=== PATIENT | female | born 1965 | race Caucasian/White ===

== ENCOUNTER → 2016-08-25 | Outpatient (CLI) | payer OTHER ==
[~2016-08-25] VITALS: Ht 154.9 cm; Wt 111.1 kg
[~2016-08-25] MED LIST: ASPI325T PO; CYCL10TA PO; DULO1CAP3 PO; FISH1000 PO; GABA-282 PO; LIDOCAINE 2% INJ 100 MG/5 ML SDV (FOR ANES.) As Ordered ONE; MELO15TA4 PO; PERC5TAB6 PO; PHEN-223 PO; PROPOFOL 200 MG/20 ML VIAL As Ordered ONE; VITA10002 PO; VITA500046 PO; VITMTA PO
[2016-08-25 15:40] VITALS: BP 105/58
== END | disposition home or self-care (01) ==
LOC: M OPP 13:53
PROVIDERS: ATTEND Internal Medicine Gastroenterology
DX: Z12.11 Encounter for screening for malignant neoplasm of colon (principal); D12.2 Benign neoplasm of ascending colon; R12 Heartburn; K44.9 Diaphragmatic hernia without obstruction or gangrene; K21.9 Gastro-esophageal reflux disease without esophagitis; M51.9 Unspecified thoracic, thoracolumbar and lumbosacral intervertebral disc disorder; M25.60 Stiffness of unspecified joint, not elsewhere classified; Z78.0 Asymptomatic menopausal state; R06.83 Snoring; Z88.1 Allergy status to other antibiotic agents; Z79.899 Other long term (current) drug therapy; Z80.3 Family history of malignant neoplasm of breast

== ENCOUNTER → 2016-08-27 | Outpatient (REF) | payer OTHER ==
[~2016-08-27] MED LIST changes: -LIDOCAINE 2% INJ 100 MG/5 ML SDV (FOR ANES.) As Ordered ONE; -PROPOFOL 200 MG/20 ML VIAL As Ordered ONE
== END ==
LOC: M LAB REF 09:29
PROVIDERS: ATTEND Nurse Practitioner Psychiatric/Mental Health
DX: K21.9 Gastro-esophageal reflux disease without esophagitis (principal)

== ENCOUNTER → 2017-05-06 | Outpatient (CLI) | payer OTHER ==
[2017-05-06 14:27] LABS: IRON (FE) 103 UG/DL (50-170)
[2017-05-06 14:29] LABS: TOTAL 25(OH) VITAMIN D 47.9 NG/ML (30.0-100.0); VITAMIN B12 LEVEL 1090 PG/ML (247-911)
== END ==
LOC: M SMT 08:57
DX: Z13.0 Encounter for screening for diseases of the blood and blood-forming organs and certain disorders involving the immune mechanism (principal); Z13.21 Encounter for screening for nutritional disorder; Z13.228 Encounter for screening for other metabolic disorders; Z13.29 Encounter for screening for other suspected endocrine disorder; Z98.84 Bariatric surgery status; Z68.35 Body mass index [BMI] 35.0-35.9, adult
CPT/HCPCS: 83540

== ENCOUNTER → 2017-05-26 | Outpatient (REF) | payer OTHER | LOC: M LAB REF 13:06 | DX: L72.11 Pilar cyst (principal) ==

== ENCOUNTER → 2019-06-08 | Outpatient (CLI) | payer OTHER ==
[~2019-06-08] MED LIST changes: +ASPI-1 PO; -ASPI325T PO; +CYAN100049 PO; -DULO1CAP3 PO; +DULO1CAP6 PO; -GABA-282 PO; +GABA-843 PO; +MELO15TA28 PO; -MELO15TA4 PO; +PERC5TAB12 PO; -PERC5TAB6 PO; -PHEN-223 PO; +PHEN30CA2 PO; -VITA10002 PO
== END ==
LOC: M LABSMTC 11:16
PROVIDERS: ATTEND Family Medicine
DX: Z11.59 Encounter for screening for other viral diseases (principal); Z20.828 Contact with and (suspected) exposure to other viral communicable diseases

== ENCOUNTER 2019-12-18 14:31 | Emergency (ER) | payer OTHER ==
[~2019-12-18] VITALS: Ht 154.9 cm; Wt 68.2 kg
[2019-12-18 14:31] VITALS: BP 164/72
[~2019-12-18 14:31] MED LIST changes: +CYCL-707 PO; -CYCL10TA PO
[2019-12-18] MEDS ORDERED: TETRACAINE 0.5% OPHTH SOLN 4ML OS ONE (14:45)
[2019-12-18] MEDS ORDERED: FLUORESCEIN OPHTH 1 MG STRIP OS ONE (14:45)
[2019-12-18] MEDS ORDERED: POLYSOL OS (15:07)
== END 2019-12-18 15:19 | disposition home or self-care (01) ==
LOC: M ED 14:31
DX: S05.02XA Injury of conjunctiva and corneal abrasion without foreign body, left eye, initial encounter (principal); W26.8XXA Contact with other sharp object(s), not elsewhere classified, initial encounter; Y92.9 Unspecified place or not applicable; Y93.9 Activity, unspecified; F33.9 Major depressive disorder, recurrent, unspecified; F41.9 Anxiety disorder, unspecified; Z98.84 Bariatric surgery status; Z88.1 Allergy status to other antibiotic agents; Z79.899 Other long term (current) drug therapy

== ENCOUNTER → 2020-02-14 | Outpatient (REF) | payer OTHER ==
[~2020-02-14] MED LIST changes: +POLYSOL OS
[2020-02-14 17:56] LABS: BASO % 0.6 % (0.0-1.0); EOS # 0.1 10^3/uL (0.0-0.5); EOS % 0.9 % (0.0-3.0); HEMATOCRIT 43.6 % (36.0-47.0); HEMOGLOBIN 13.8 g/dl (12.0-15.5); LYMPH % 37.3 % (24.0-44.0); MEAN CORPUSCULAR HEMOGLOBIN 29.4 pg (27.0-33.0); MEAN CORPUSCULAR HGB CONC 31.7 g/dl (32.0-36.5); MEAN CORPUSCULAR VOLUME 92.8 fl (80.0-96.0); MONO # 0.3 10^3/uL (0.0-0.8); MONO % 6.3 % (0.0-5.0); NEUTROPHILS % 54.7 % (36.0-66.0); PLATELET COUNT, AUTOMATED 238 10^3/uL (150-450); WHITE BLOOD COUNT 5.4 10^3/uL (4.0-10.0)
== END ==
LOC: M LAB REF 17:19
PROVIDERS: ATTEND Specialist
DX: T78.40XA Allergy, unspecified, initial encounter (principal)

== ENCOUNTER → 2021-08-20 | Outpatient (CLI) | payer OTHER ==
[~2021-08-20] MED LIST changes: +GABA-282 PO; -GABA-843 PO; -PHEN30CA2 PO; +PHEN30CA21 PO
== END ==
LOC: M WUC 15:57
PROVIDERS: ATTEND Physician Assistant
DX: M43.12 Spondylolisthesis, cervical region (principal); M50.321 Other cervical disc degeneration at C4-C5 level; M50.322 Other cervical disc degeneration at C5-C6 level; M50.323 Other cervical disc degeneration at C6-C7 level; M25.78 Osteophyte, vertebrae

== ENCOUNTER → 2021-11-19 | Outpatient (CLI) | payer OTHER | LOC: M WHC 07:57 | PROVIDERS: ATTEND Obstetrics & Gynecology | DX: Z12.31 Encounter for screening mammogram for malignant neoplasm of breast (principal); Z13.820 Encounter for screening for osteoporosis; M85.851 Other specified disorders of bone density and structure, right thigh; M85.852 Other specified disorders of bone density and structure, left thigh ==

== ENCOUNTER → 2022-07-10 | Outpatient (REF) | payer OTHER ==
[2022-07-10 18:49] LABS: BASO % 0.4 % (0.0-1.0); EOS # 0.1 10^3/uL (0.0-0.5); EOS % 0.7 % (0.0-3.0); HEMATOCRIT 43.1 % (36.0-47.0); MEAN CORPUSCULAR HEMOGLOBIN 30.4 pg (27.0-33.0); MEAN CORPUSCULAR HGB CONC 32.5 g/dl (32.0-36.5); MEAN CORPUSCULAR VOLUME 93.7 fl (80.0-96.0); MONO # 0.6 10^3/uL (0.0-0.8); MONO % 6.3 % (2.0-8.0); NEUTROPHILS # 6.2 10^3/uL (1.5-8.5); NEUTROPHILS % 62.3 % (36.0-66.0); PLATELET COUNT, AUTOMATED 339 10^3/uL (150-450)
[2022-07-10 19:22] LABS: ALBUMIN 4.2 G/DL (3.2-5.2); ALKALINE PHOSPHATASE 95 U/L (46-116); ALT/SGPT 70 U/L (7.0-40); AST/SGOT 57 U/L (<34); BILIRUBIN,TOTAL 0.9 MG/DL (0.3-1.2); BLOOD UREA NITROGEN 11 MG/DL (9-23); CALCIUM LEVEL 9.6 MG/DL (8.5-10.1); CARBON DIOXIDE LEVEL 29 MMOL/L (20-31); CHLORIDE LEVEL 105 MMOL/L (98-107); CREATININE FOR GFR 0.72 MG/DL (0.55-1.30); GLOMERULAR FILTRATION RATE > 60.0 (>51); GLUCOSE, FASTING 82 MG/DL (60-100); MAGNESIUM LEVEL 2.1 MG/DL (1.8-2.4); POTASSIUM SERUM 4.3 MMOL/L (3.5-5.1); SODIUM LEVEL 139 MMOL/L (136-145); TOTAL PROTEIN 7.2 G/DL (5.7-8.2)
== END ==
LOC: M LAB REF 17:11
PROVIDERS: ATTEND Physician Assistant
DX: E61.2 Magnesium deficiency (principal); E55.9 Vitamin D deficiency, unspecified; Z98.84 Bariatric surgery status

== ENCOUNTER 2022-08-28 21:00 | Emergency (ER) | payer OTHER ==
[~2022-08-28] VITALS: Ht 154.9 cm; Wt 67.6 kg
[2022-08-28 21:01] VITALS: TEMP 98.2
[2022-08-28] MEDS ORDERED: PANTOPRAZOLE 40MG VIAL IV ONE (21:25)
[2022-08-28] MEDS ORDERED: ONDANSETRON 4MG 2ML VIAL IV ONE (21:25)
[2022-08-28] MEDS ORDERED: NS 1,000 ML IV SCH (21:25)
[2022-08-28] MEDS ORDERED: MORPHINE 4 MG/ML 1ML VIAL IV ONE ×2 (21:25→23:05)
[2022-08-28] MEDS ORDERED: ISOVUE-370 76% 100ML VIAL As Ordered ONE (21:27)
[2022-08-28 22:08] LABS: BASO # 0.1 10^3/uL (0.0-0.2); BASO % 0.6 % (0.0-1.0); EOS # 0.1 10^3/uL (0.0-0.5); EOS % 0.9 % (0.0-3.0); HEMATOCRIT 39.8 % (36.0-47.0); LYMPH # 2.8 10^3/uL (1.5-5.0); LYMPH % 28.8 % (24.0-44.0); MEAN CORPUSCULAR HEMOGLOBIN 30.1 pg (27.0-33.0); MEAN CORPUSCULAR HGB CONC 32.7 g/dl (32.0-36.5); MEAN CORPUSCULAR VOLUME 92.1 fl (80.0-96.0); MONO # 0.5 10^3/uL (0.0-0.8); MONO % 5.5 % (2.0-8.0); NEUTROPHILS # 6.3 10^3/uL (1.5-8.5); NEUTROPHILS % 63.9 % (36.0-66.0); PLATELET COUNT, AUTOMATED 326 10^3/uL (150-450); RED BLOOD COUNT 4.32 10^6/uL (4.00-5.40); WHITE BLOOD COUNT 9.8 10^3/uL (4.0-10.0)
[2022-08-28 22:20] LABS: INR 0.91; PROTHROMBIN TIME 12.5 SECONDS (12.5-14.5)
[2022-08-28] MEDS: GASTROGRAFIN SOLUTION 30ML PO SCH ×2 (22:21→22:30)
[2022-08-28 22:23] LABS: ALBUMIN 3.8 G/DL (3.2-5.2); BILIRUBIN,DIRECT 0.3 MG/DL (<0.4); BILIRUBIN,TOTAL 0.9 MG/DL (0.3-1.2); TOTAL PROTEIN 6.2 G/DL (5.7-8.2)
[2022-08-28 22:25] LABS: BLOOD UREA NITROGEN 15 MG/DL (9-23); CARBON DIOXIDE LEVEL 26 MMOL/L (20-31); CHLORIDE LEVEL 104 MMOL/L (98-107); CK-MB VALUE MASS < 1.0 NG/ML (<3.6); CPK CREATINE PHOSPHOKINASE 50 U/L (34-145); CREATININE FOR GFR 0.95 MG/DL (0.55-1.30); GLOMERULAR FILTRATION RATE > 60.0 (>51); GLUCOSE, FASTING 83 MG/DL (60-100); POTASSIUM SERUM 3.7 MMOL/L (3.5-5.1); SODIUM LEVEL 137 MMOL/L (136-145)
[2022-08-28 23:33] LABS: CK-MB VALUE MASS < 1.0 NG/ML (<3.6)
[2022-08-28 23:37] LABS: CPK CREATINE PHOSPHOKINASE 49 U/L (34-145); MB/CK RELATIVE INDEX 2.04 (< OR =4)
[2022-08-29 00:46] VITALS: BP 146/82; O2SAT 99
[2022-08-29] MEDS ORDERED: PROT1TAB2 PO (03:35)
[2022-08-29] MEDS ORDERED: CARA1TAB6 PO (03:35)
== END 2022-08-29 03:48 | disposition home or self-care (01) ==
LOC: M ED 21:00
DX: R10.9 Unspecified abdominal pain (principal); F32.A Depression, unspecified; Z88.1 Allergy status to other antibiotic agents; Z98.84 Bariatric surgery status; Z79.810 Long term (current) use of selective estrogen receptor modulators (SERMs); Z79.899 Other long term (current) drug therapy
CPT/HCPCS: 74177; 76705; 80047; 80048; 80076; 81001; 82550; 82553; 83605; 83690; 84484; 85025; 85610; 93005; 93041; 96361; 96374; 96375; 99285; C9113; J2405; Q9963; Q9967

== ENCOUNTER → 2022-09-24 | Outpatient (REF) | payer OTHER ==
[~2022-09-24] MED LIST changes: +CARA1TAB6 PO; +PROT1TAB2 PO
[2022-09-24 12:55] LABS: IRON (FE) 71 UG/DL (50-170); TOTAL IRON BINDING CAPACITY 323 UG/DL (250-425)
[2022-09-24 12:56] LABS: HEMATOCRIT 43.5 % (36.0-47.0); HEMOGLOBIN 14.3 g/dl (12.0-15.5); MEAN CORPUSCULAR HEMOGLOBIN 30.6 pg (27.0-33.0); MEAN CORPUSCULAR HGB CONC 32.9 g/dl (32.0-36.5); MEAN CORPUSCULAR VOLUME 93.1 fl (80.0-96.0); PLATELET COUNT, AUTOMATED 264 10^3/uL (150-450); RED BLOOD COUNT 4.67 10^6/uL (4.00-5.40); WHITE BLOOD COUNT 5.9 10^3/uL (4.0-10.0)
[2022-09-24 12:59] LABS: ALBUMIN 4.1 G/DL (3.2-5.2); ALKALINE PHOSPHATASE 95 U/L (46-116); ALT/SGPT 42 U/L (7.0-40); AST/SGOT 21 U/L (<34); BILIRUBIN,TOTAL 1.2 MG/DL (0.3-1.2); BLOOD UREA NITROGEN 13 MG/DL (9-23); CALCIUM LEVEL 9.6 MG/DL (8.5-10.1); CARBON DIOXIDE LEVEL 29 MMOL/L (20-31); CHLORIDE LEVEL 105 MMOL/L (98-107); CHOLESTEROL LEVEL 211 MG/DL (<200); CHOLESTEROL RISK RATIO 2.26 (<5); CREATININE FOR GFR 0.75 MG/DL (0.55-1.30); FERRITIN 73.7 NG/ML (7.3-270.7); FOLATE 14.52 NG/ML (>5.4); GLOMERULAR FILTRATION RATE > 60.0 (>51); GLUCOSE, FASTING 90 MG/DL (60-100); HDL CHOLESTEROL 93.1 MG/DL (>40); LDL CHOLESTEROL 97.1 MG/DL (<100); NON-HDL-C 117.9 MG/DL; SODIUM LEVEL 140 MMOL/L (136-145); TOTAL 25(OH) VITAMIN D 32.8 NG/ML (20.0-100.0); TOTAL PROTEIN 6.9 G/DL (5.7-8.2); TRIGLYCERIDES LEVEL 104 MG/DL (<150); VITAMIN B12 LEVEL 399 PG/ML (211-911)
[2022-09-26 07:36] LABS: IONIZED CALCIUM 5.1 MG/DL (4.5-5.6)
== END ==
LOC: M LAB REF 10:19
PROVIDERS: ATTEND Registered Nurse
DX: R10.11 Right upper quadrant pain (principal); Z98.84 Bariatric surgery status

== ENCOUNTER → 2022-11-04 | Outpatient (CLI) | payer OTHER | LOC: M RAD 11:40 | PROVIDERS: ATTEND Registered Nurse | DX: Z98.84 Bariatric surgery status (principal); R10.11 Right upper quadrant pain | CPT/HCPCS: 78227; A9537 ==

== ENCOUNTER 2023-05-18 12:25 | Day surgery (SDC) | payer OTHER ==
[~2023-05-18] VITALS: Ht 154.9 cm; Wt 70.7 kg
[~2023-05-18 12:25] MED LIST changes: +BARI1CAP PO; +CALC600T60 PO; +TRAZ-252 PO
[2023-05-18] MEDS: NS 1,000 ML IV ONE (13:20)
[2023-05-18] MEDS ORDERED: fentaNYL 100 MCG/2 ML INJECTION As Ordered ONE (14:17)
[2023-05-18] MEDS ORDERED: propofoL 200 MG/20 ML VIAL As Ordered ONE (14:23)
[2023-05-18] MEDS ORDERED: LIDOCAINE 2% 100MG/5ML SDV (FOR ANES.) As Ordered ONE (14:23)
[2023-05-18 14:59] VITALS: TEMP 97.1
[2023-05-18 15:10] VITALS: BP 120/57; O2SAT 100
== END 2023-05-18 15:18 | disposition home or self-care (01) ==
LOC: M OPP 12:25
PROVIDERS: ATTEND Internal Medicine Gastroenterology
DX: Z12.11 Encounter for screening for malignant neoplasm of colon (principal); Z86.010 Personal history of colon polyps; K64.0 First degree hemorrhoids; Z98.84 Bariatric surgery status; R10.13 Epigastric pain; Z79.1 Long term (current) use of non-steroidal anti-inflammatories (NSAID); Z79.891 Long term (current) use of opiate analgesic; Z79.899 Other long term (current) drug therapy; Z88.1 Allergy status to other antibiotic agents
CPT/HCPCS: 43239; 45378; 88305; J3010

== ENCOUNTER → 2024-09-28 | Outpatient (REF) | payer OTHER ==
[~2024-09-28] MED LIST changes: +GABA-1172 PO; -GABA-282 PO
[2024-09-28 18:16] LABS: PLATELET COUNT, AUTOMATED 262 10^3/uL (150-450)
[2024-09-28 18:20] LABS: ALT/SGPT 45.0 U/L (7.0-40); AST/SGOT 52.0 U/L (<34); CALCIUM LEVEL 9.9 MG/DL (8.5-10.1); CARBON DIOXIDE LEVEL 28.0 MMOL/L (20-31); CHLORIDE LEVEL 104.0 MMOL/L (98-107); CREATININE FOR GFR 0.92 MG/DL (0.55-1.30); GLOMERULAR FILTRATION RATE 71.7 (>51); IRON (FE) 83.0 UG/DL (50-170); MAGNESIUM LEVEL 2.1 MG/DL (1.8-2.4); POTASSIUM SERUM 4.1 MMOL/L (3.5-5.1); SODIUM LEVEL 145.0 MMOL/L (136-145)
[2024-09-28 18:23] LABS: TOTAL 25(OH) VITAMIN D 35.1 NG/ML (20.0-100.0)
== END ==
LOC: M LAB REF 17:40
PROVIDERS: ATTEND Physician Assistant
DX: Z98.84 Bariatric surgery status (principal); F33.1 Major depressive disorder, recurrent, moderate